=== PATIENT | female | born 1990 | race Caucasian/White ===

== ENCOUNTER 2021-05-24 19:41 | Emergency (ER) | payer MEDICAID ==
[2021-05-24] MEDS ORDERED: Sulfamethoxazole/Trimethoprim 800-160 MG Tab ONE (20:00)
--- NOTE | 2021-05-24 20:33 | EDM.PDOC ---
ED HPI GENERAL MEDICAL PROBLEM - General Chief Complaint: Abdominal Pain Stated Complaint: abd pain Time Seen by Provider: 05/24/21 19:45 Source of Information: Reports: Patient, RN Notes Reviewed History Limitations: Reports: No Limitations - History of Present Illness INITIAL COMMENTS - FREE TEXT/NARRATIVE: Is this patient presents emergency department for evaluation of abdominal pain. She states she developed sharp lower pelvic pain a couple hours ago. She states it has subsided some but it is still present. She denies any nausea or vomiting. She denies any vaginal discharge or bleeding. Her last period was about 3 weeks ago. She states that she has had some cramping today as well. 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 She localizes the pain to just over her bladder. - Related Data Allergies Allergy/AdvReac Type Severity Reaction Status Date / Time No Known Allergies Allergy Verified 05/24/21 19:42 Home Meds: Home Meds Escitalopram Oxalate [Lexapro] 10 mg PO DAILY 05/24/21 [History] Social & Family History - Recreational Drug Use Recreational Drug Use: No ED ROS GENERAL - Review of Systems Review Of Systems: Comprehensive ROS is negative, except as noted in HPI. ED EXAM, RENAL/ - Physical Exam Exam: See Below Exam Limited By: No Limitations General Appearance: Alert, No Apparent Distress Eye Exam: Bilateral Eye: PERRL Ears: Normal External Exam, Hearing Grossly Normal Nose: Normal Inspection Head: Atraumatic, Normocephalic Neck: Normal Inspection, Full Range of Motion Respiratory/Chest: No Respiratory Distress, No Accessory Muscle Use GI/Abdominal: Normal Bowel Sounds, Soft, Non-Tender, No Distention, Other (Suprapubic pain with palpation.) Neurological: Alert, Oriented Psychiatric: Normal Affect Skin Exam: Warm, Dry, Intact, Normal Color Course - Vital Signs Last Recorded V/S: Last Vital Signs Temp 36.9 C 05/24/21 19:43 Pulse 98 05/24/21 19:43 Resp 20 05/24/21 19:43 BP 135/87 05/24/21 19:43 Pulse Ox 98 05/24/21 19:43 - Orders/Labs/Meds Orders: Active Orders 24 hr Category Date Time Status UA RFX JOSE AND CULT IF INDIC [URIN] Stat Lab 05/24/21 20:10 Ordered - Re-Assessments/Exams Free Text/Narrative Re-Assessment/Exam: 05/24/21 20:35 This patient presents today with pubic as detailed above. A urine was obtained and was noted to be cloudy and positive for leukocyte esterase and nitrites. History and clinical findings are most consistent with a urinary tract infection. Patient is nontoxic appearing with no CVA tenderness, vomiting or fever. Recitation is not suggestive of pyelonephritis, infected stone or renal abscess. There is no indication for further work-up at this time and no urine culture is required. Patient was prescribed a 3-day course of Bactrim DS. Patient should follow-up with her primary care provider in 2 to 3 days if she is not better, sooner if she is worse in any way. She should return to the emergency department should she develop fevers, chills, flank pain, vomiting or any other new or worsening symptoms. The patient was stable at the time of discharge. Departure - Departure Time of Disposition: 20:20 Disposition: Home, Self-Care 01 Condition: Good Clinical Impression: UTI (urinary tract infection) - Discharge Information Instructions: Urinary Tract Infection, Adult Forms: ED Department Discharge Care Plan Goals: Bactrim DS take one tab by mouth twice daily x three daily. Sepsis Event Note (ED) - Evaluation Sepsis Screening Result: No Definite Risk - Focused Exam Vital Signs: Vital Signs Temp Pulse Resp BP Pulse Ox 05/24/21 19:43 36.9 C 98 20 135/87 98 - My Orders Last 24 Hours: My Active Orders 05/24/21 20:10 UA RFX JOSE AND CULT IF INDIC [URIN] Stat - Assessment/Plan Last 24 Hours: My Active Orders 05/24/21 20:10 UA RFX JOSE AND CULT IF INDIC [URIN] Stat
== END 2021-05-24 20:26 | disposition home or self-care (01) ==
LOC: LB.ED 19:41
DX: N39.0 Urinary tract infection, site not specified (principal); Z79.899 Other long term (current) drug therapy
CPT/HCPCS: 99283; A9270-GY

== ENCOUNTER 2021-06-12 10:04 | Emergency (ER) | payer MEDICAID ==
--- NOTE | 2021-06-12 15:49 | EDM.PDOC ---
ED HPI GENERAL MEDICAL PROBLEM - General Chief Complaint: Respiratory Problem Stated Complaint: POSSIBLE EAR INFECTION Time Seen by Provider: 06/12/21 10:15 Source of Information: Reports: Patient History Limitations: Reports: No Limitations - History of Present Illness INITIAL COMMENTS - FREE TEXT/NARRATIVE: 31-year-old female complains of congestion in her ears, eyes, sinuses. She had acute onset of the symptoms approximately 2 days ago. Pain does not radiate anywhere, nothing has improved her discomfort. It does get worse when she leans forward to tie her shoes. It has affected her sleep especially last night. She describes the pain as a 6/10 on the pain scale. Pertinent medical history, cold 3 weeks ago, UTI a week ago. Patient denies chest pain, shortness of breath, diarrhea/constipation, nausea/vomiting, syncope near syncope, blurred vision, difficulty swallowing, swollen painful joints, rash or fever. Treatments [employer]: Reports: NSAIDS Bilateral Ear Pain Score (Numeric/FACES): 6 - Related Data Allergies Allergy/AdvReac Type Severity Reaction Status Date / Time No Known Allergies Allergy Verified 06/12/21 10:19 Home Meds: Home Meds Escitalopram Oxalate [Lexapro] 10 mg PO DAILY 05/24/21 [History] Past Medical History - Past Health History Medical/Surgical History: Denies Medical/Surgical History [employer] History: Reports: Psychiatric History: Reports: Anxiety Social & Family History - Tobacco Use Tobacco Use Status *Q: Never Tobacco User Second Hand Smoke Exposure: Yes - Caffeine Use Caffeine Use: Reports: Coffee - Recreational Drug Use Recreational Drug Use: No ED ROS GENERAL - Review of Systems Review Of Systems: Comprehensive ROS is negative, except as noted in HPI. ED EXAM, GENERAL - Physical Exam Exam: See Below Free Text/Narrative:: 31-year-old female found in bay 2 in ED then moved to treatment room. ABCs are intact. Speaking in full sentences, no apparent distress. Alert and oriented through 3 GCS 4 5 6 no obvious trauma. Exam Limited By: No Limitations General Appearance: Alert, WD/WN, No Apparent Distress Eye Exam: Bilateral Eye: Conjunctival Injection (Negative for), EOMI, PERRL, Other (Negative for conjunctivitis or scleral injection) Ears: Normal External Exam, Normal Canal, Hearing Grossly Normal, Normal TMs Ear Exam: Bilateral Ear: Auricle Normal, Canal Normal, TM normal Nose: Normal Inspection, Normal Mucosa, No Blood Throat/Mouth: Normal Inspection, Normal Lips, Normal Teeth, Normal Gums, Normal Oropharynx, Normal Voice, No Airway Compromise Head: Atraumatic, Normocephalic Neck: Normal Inspection, Supple, Non-Tender, Full Range of Motion. No: Lymphadenopathy (R), Lymphadenopathy (L) Respiratory/Chest: No Respiratory Distress, Lungs Clear, Normal Breath Sounds, No Accessory Muscle Use, Chest Non-Tender Cardiovascular: Normal Peripheral Pulses, Regular Rate, Rhythm, No Edema, No Gallop, No JVD, No Murmur, No Rub GI/Abdominal: Soft, Non-Tender, No Mass Back Exam: No: CVA Tenderness (R), CVA Tenderness (L) Extremities: Normal Inspection, Normal Range of Motion, Non-Tender, Normal Capillary Refill, No Pedal Edema Neurological: Alert, Oriented, Normal Cognition, Normal Gait Psychiatric: Normal Affect, Normal Mood Skin Exam: Warm, Dry, Intact, Normal Color, No Rash Lymphatic: No Adenopathy Course - Vital Signs Last Recorded V/S: Last Vital Signs Temp 98.5 F 06/12/21 10:15 Pulse 95 06/12/21 10:15 Resp 18 06/12/21 10:15 BP 159/93 H 06/12/21 10:15 Pulse Ox 97 06/12/21 10:15 - Orders/Labs/Meds Labs: Laboratory Tests 06/12/21 06/12/21 06/12/21 Range/Units 10:39 10:50 10:52 WBC 11.7 H (4.0-11.0) K/uL RBC 4.61 (3.80-5.80) M/uL Hgb 13.4 (11.5-16.5) g/dL Hct 39.1 (37.0-47.0) % MCV 85 (76-96) fL MCH 29.1 (27.0-32.0) pg MCHC 34.3 (31.0-35.0) g/dL RDW 12.4 (11.0-16.0) % Plt Count 384 (150-500) K/uL MPV 9.4 (6.0-10.0) fL Neut % (Auto) 74.0 H (45.0-70.0) % Lymph % (Auto) 18.0 L (20.0-40.0) % [place] % (Auto) 6.8 (3.0-10.0) % Eos % (Auto) 0.9 L (1.0-5.0) % Baso % (Auto) 0.3 (0.0-0.5) % Neut # (Auto) 8.67 H (2.00-7.50) K/uL Lymph # (Auto) 2.10 (1.50-4.00) K/uL [place] # (Auto) 0.79 (0.20-0.80) K/uL Eos # (Auto) 0.10 (0.04-0.40) K/uL Baso # (Auto) 0.03 (0.02-0.10) K/uL Urine Color Yellow Urine Appearance Clear (CLEAR) Urine pH 7.0 (5.0-8.0) Ur Specific [place] 1.015 (1.003-1.030) Urine Protein Negative (NEGATIVE) mg/dL Urine Glucose (UA) Negative (NEGATIVE) mg/dL Urine Ketones Negative (NEGATIVE) mg/dL Urine Occult Blood Small H (NEGATIVE) Urine Nitrite Negative (NEGATIVE) Urine Bilirubin Negative (NEGATIVE) Urine Urobilinogen 0.2 (0.2-1.0) E.U./dL Ur Leukocyte Esterase Negative (NEGATIVE) Urine RBC 5-10 H /HPF Urine WBC 0-5 H /HPF Ur Squamous Epith Cells Many /HPF Urine Bacteria Few /HPF SARS CoV-2 RNA Rapid ANITA Negative Departure - Departure Time of Disposition: 11:40 Disposition: Home, Self-Care 01 Condition: Good Clinical Impression: Sinus congestion - Discharge Information *PRESCRIPTION DRUG MONITORING PROGRAM REVIEWED*: No *COPY OF PRESCRIPTION DRUG MONITORING REPORT IN PATIENT MOOKIE: No Referrals: PCP,None [Primary Care Provider] - Forms: ED Department Discharge Additional Instructions: Take Sudafed as ordered. Nasal Saline Use Humidifier Follow up with Primary Care Physician within a week. Sepsis Event Note (ED) - Evaluation Sepsis Screening Result: No Definite Risk - Focused Exam Vital Signs: Vital Signs Temp Pulse Resp BP Pulse Ox 06/12/21 10:15 98.5 F 95 18 159/93 H 97 - Problem List & Annotations (1) Sinus congestion Status: Acute - Assessment/Plan Assessment:: 31-year-old female presents for evaluation of congestion of the sinuse pressure. Signs symptoms are consistent with sinusitis. Discussed viral versus bacterial sinusitis with the patient. Doubt fungal sinusitis, meningitis encephalitis, cavernous sinus thrombosis, ocular pathology, intracerebral bleed, serious bacterial infection otherwise. Supportive outpatient management is indicated outpatient medications suggested as noted below. Reasons to return to the ED we re reviewed including worsening symptoms or any new concerns patient was in agreement with the plan and the and discharged in satisfactory condition with all questions answered Plan: ABC, history, exam, labs, patient education/shared decision making, negative Covid, no sign of systemic bacterial infection, viral sinusitis suspected based on symptomology and presentation, advised to keep her self well-hydrated, use nasal saline frequently for congestion, Advil for discomfort, humidifier, and Sudafed. Patient to follow-up with primary care provider
== END 2021-06-12 11:40 | disposition home or self-care (01) ==
LOC: LB.ED 10:04
DX: J34.89 Other specified disorders of nose and nasal sinuses (principal); Z20.822 Contact with and (suspected) exposure to COVID-19
CPT/HCPCS: 36415; 81001; 85025; 99283; U0002